=== PATIENT | male | born 1965 | race Caucasian/White ===

== ENCOUNTER 2016-07-24 12:28 | Emergency (ER) | payer OTHER ==
[2016-07-24 12:37] VITALS: TEMP 98.1; BMI 30.3
[2016-07-24] MEDS ORDERED: KETOROLAC TROMETHAMINE 30 MG/1 ML VIAL IVPUSH ONE (12:45)
--- NOTE | 2016-07-24 12:56 | PDOC ---
History of Present Illness - History of Present Illness Initial Comments: 07/24/16 12:58 The patient is a 53-year-old man, accompanied by , with a past medical history of herniated discs s/p epidural injection and rapid heart beats who presents to the emergency department for further evaluation of chest pain approximately 25 minutes prior to ER arrival. Patient states that he was in his backyard, raking the leaves, when he suddenly felt left sided shoulder pain that radiates down to his left chest. Patient states that he had this pain before, that usually resolves when taking 2 baby aspirins. Patient took to baby aspirins today with no relief. He notes that his pain is severely exacerbated when taking deep breathes (with a rated 8/10). He also notes that his pain is mildly exacerbated with lateral arm movements. He denies any associated symptoms of fever, chills, nausea, headache, shortness of breath, leg pain/ swelling, neck pain, neck stiffness, nausea, vomiting, abdominal pain, sore throat, urinary symptoms Allergies: No Known Drug Allergies Past Surgical History: Epidural injections Social History: Never smoked. Occasional ETOH use. No recreational drug use. Primary Care Physician: Dr. Scott Steele <Karie Noble - Last Filed: 07/24/16 13:00> - General History Source: Patient, Old Records Exam Limitations: No Limitations <Tiffanie Son - Last Filed: 07/24/16 15:57> - General Chief Complaint: Chest Pain Stated Complaint: CHEST PAIN Time Seen by Provider: 07/24/16 12:38 Past History <Karie Noble - Last Filed: 07/24/16 13:00> - Past Medical History Other medical history: CHRONIC BACK PAIN. - Psycho/Social/Smoking Cessation Hx Anxiety: No Suicidal Ideation: No Smoking History: Never smoked Hx Alcohol Use: Yes (occassionally.) Drug/Substance Use Hx: No Substance Use Type: Alcohol <Tiffanie Son - Last Filed: 07/24/16 15:57> - Past Medical History Allergies/Adverse Reactions: Allergies Allergy/AdvReac Type Severity Reaction Status Date / Time No Known Allergies Allergy Verified 07/24/16 12:31 Home Medications: Ambulatory Orders Aspirin [ASA -] 81 mg PO DAILY 07/24/16 Review of Systems - Review of Systems Able to Perform ROS?: Yes Comments:: 07/24/16 12:58 CONSTITUTIONAL: Absent: fever, chills, diaphoresis, generalized weakness, malaise, loss of appetite HEENT: Absent: rhinorrhea, nasal congestion, throat pain, throat swelling, difficulty swallowing, mouth swelling, ear pain, eye pain, visual Changes CARDIOVASCULAR: Present: Chest pain. Absent: syncope, palpitations, irregular heart rate, lightheadedness, peripheral edema RESPIRATORY: Absent: cough, shortness of breath, dyspnea with exertion, orthopnea, wheezing, stridor, hemoptysis GASTROINTESTINAL:Absent: abdominal pain, abdominal distension, nausea, vomiting , diarrhea, constipation, melena, hematochezia GENITOURINARY: Absent: dysuria, frequency, urgency, hesitancy, hematuria, flank pain, genital pain MUSCULOSKELETAL: Present: Left shoulder pain radiating to his chest. Absent: joint swelling SKIN: Absent: rash, itching, pallor HEMATOLOGIC/IMMUNOLOGIC: Absent: easy bleeding, easy bruising, lymphadenopathy, frequent infections ENDOCRINE:Absent: unexplained weight gain, unexplained weight loss, heat intolerance, cold intolerance NEUROLOGIC: Absent: headache, focal weakness or paresthesias, dizziness, unsteady gait, seizure, mental status changes, bladder or bowel incontinence PSYCHIATRIC: Absent: anxiety, depression, suicidal or homicidal ideation, hallucinations <Karie Noble - Last Filed: 07/24/16 13:00> *Physical Exam - Vital Signs Last Vital Signs Temp Pulse Resp BP Pulse Ox 98.1 F 72 18 127/93 96 07/24/16 12:30 07/24/16 12:30 07/24/16 12:30 07/24/16 12:30 07/24/16 12:30 - Physical Exam Comments: 07/24/16 12:59 GENERAL: Well developed, well nourished. Awake and alert. No acute distress. HEENT: Normocephalic, atraumatic. PERRLA, EOMI. No conjunctival pallor. Sclera are non-icteric. Moist mucous membranes. Oropharynx is clear. NECK: Supple. Full ROM. No JVD. CARDIOVASCULAR: Regular rate and rhythm. No murmurs, rubs, or gallops. PULMONARY: No evidence of respiratory distress. Lungs clear to auscultation bilaterally. No wheezing, rales or rhonchi. ABDOMINAL: Soft. Non-tender. Non-distended. No rebound or guarding. No organomegaly. Normoactive bowel sounds. MUSCULOSKELETAL: Normal range of motion at all joints. No bony deformities or tenderness. No CVA tenderness. EXTREMITIES: No cyanosis. No clubbing. No edema. No calf tenderness. SKIN: Warm and dry. Normal capillary refill. No rashes. No jaundice. NEUROLOGICAL: Alert, awake, appropriate. Cranial nerves 2-12 intact. Normal speech. PSYCHIATRIC: Cooperative. Good eye contact. Appropriate mood and affect. <Karie Noble - Last Filed: 07/24/16 13:00> - Vital Signs Last Vital Signs Temp Pulse Resp BP Pulse Ox 98.1 F 72 18 127/93 96 07/24/16 12:30 07/24/16 12:30 07/24/16 12:30 07/24/16 12:30 07/24/16 12:30 <Tiffanie Son - Last Filed: 07/24/16 15:57> ED Treatment Course - LABORATORY CBC & Chemistry Diagram: 07/24/16 13:13 07/24/16 13:13 - RADIOLOGY Radiology Studies Ordered: Category Date Time Status CHEST PA & LAT [RAD] Stat Radiology 07/24/16 12:45 Ordered <Tiffanie Son - Last Filed: 07/24/16 15:57> Medical Decision Making - Medical Decision Making 07/24/16 12:45 51-year-old male with history of chronic lower back pain who presents to the emergency Department with complaints of left-sided shoulder pain radiating into the chest that occurred while he was raking leaves; the pain is described as sharp and is worse with deep inspiration and movement of his left upper extremity. Differential diagnosis includes but is not limited to: ACS, musculoskeletal pain, pneumothorax, URI, electrolyte abnormality, toxic/ metabolic derangement. Plan: 1. EKGshows normal sinus rhythm at 78 bpm with a normal axis and normal intervals and no acute ST segment changes. 2. Labs 3. Chest x-ray 4. Pain management 5. Observe and reevaluate 07/24/16 15:54 Addendum: Labs were reviewed and are noted in the EMR. His heart score is low and his Sx are atypical for CP of cardiac origin. Will discharge home. Follow- up with PCP within one week. Return to the ED if Sx persist, worsen or new Sx arise. <Tiffanie Son - Last Filed: 07/24/16 15:57> *DC/Admit/Observation/Transfer - Attestations Scribe Attestion: 07/24/16 13:00 Documentation prepared by Karie Noble, acting as medical assisting instructor for Tiffanie Son MD. <Karie Noble - Last Filed: 07/24/16 13:00> - Discharge Dispostion Admit: No - Attestations Physician Attestion: 07/24/16 12:56 I, Dr. Tiffanie Son, attest that the scribes documentation that appears above has been prepared under my direction and personally reviewed by me in its entirety. I confirmed that the note above accurately reflects all work, treatment, procedures, and medical decision-making performed by me. <Tiffanie Son - Last Filed: 07/24/16 15:57> Diagnosis at time of Disposition: Chest pain - Discharge Dispostion Disposition: HOME Condition at time of disposition: Stable - Referrals Referrals: Scott Steele MD [Primary Care Provider] - - Patient Instructions Printed Discharge Instructions: DI for Atypical Chest Pain, DI for Chest Pain Additional Instructions: You have chest pain that is not typical for having a cardiac etiology. You may take tylenol or ibuprofen for your pain. Please follow-up with your primary care physician and return to the ED if your symptoms persist, worsen or new symptoms arise.
[2016-07-24] MEDS ORDERED: KETOROLAC TROMETHAMINE 30 MG/1 ML VIAL ONE (13:08)
[2016-07-24 13:23] LABS: BASOPHIL 0.7 % (0-2.0); EOSINOPHIL 1.6 % (0-4.5); MCH 29.8 pg (25.7-33.7); MCHC 34.1 g/dl (32.0-35.9); MEAN CELL VOLUME 87.7 fl (80-96); MEAN PLT VOLUME 7.6 fl (7.5-11.1); NEUTROPHILS 41.7 % (42.8-82.8); PLATELET COUNT 204 K/MM3 (134-434); RDW 13.3 % (11.9-15.9); WHITE BLOOD COUNT 4.7 K/mm3 (4.0-10.0)
[2016-07-24 13:50] LABS: MAGNESIUM 1.8 mg/dL (1.8-2.4); PHOSPHOROUS 3.1 mg/dL (2.5-4.9)
[2016-07-24 13:51] LABS: ALBUMIN 3.4 g/dl (3.4-5.0); ANION GAP 9 (8-16); BILIRUBIN,TOTAL 0.5 mg/dL (0.2-1.0); CALCIUM 8.3 mg/dL (8.5-10.1); CO2 26 mmol/L (21-32); COCKROFT - GAULT 141.67; CREATININE 0.9 mg/dL (0.7-1.3); GLUCOSE,RANDOM 87 mg/dL (74-106); SGOT/AST 12 U/L (15-37); SGPT/ALT 30 U/L (12-78); TOT PROT 6.7 g/dl (6.4-8.2)
[2016-07-24 13:54] LABS: ALK PHOS 66 U/L (45-117); TROPONIN I < 0.02 ng/ml (0.00-0.05)
[2016-07-24 16:35] VITALS: BP 126/72; PULSE 70
--- NOTE | 2016-07-24 17:11 | EKG ---
Test Reason : Blood Pressure : / mmHG Vent. Rate : 078 BPM Atrial Rate : 078 BPM P-R Int : 194 ms QRS Dur : 084 ms QT Int : 356 ms P-R-T Axes : 052 -04 046 degrees QTc Int : 405 ms NORMAL SINUS RHYTHM NORMAL ECG WHEN COMPARED WITH ECG OF 09-JUL-2014 17:47, NO SIGNIFICANT CHANGE WAS FOUND Confirmed by DONALD COBB MD ([id number]) on 07/24/2016 5:11:16 PM Referred By: Confirmed By:DONALD COBB MD
== END 2016-07-24 16:35 | disposition home or self-care (01) ==
LOC: JER 12:28
PROC: 3E0333Z Introduction of Anti-inflammatory into Peripheral Vein, Percutaneous Approach (ICD-10-PCS; principal; 2016-07-24)
DX: R07.89 Other chest pain (principal); X50.0XXA Overexertion from strenuous movement or load, initial encounter; Y93.H1 Activity, digging, shoveling and raking; Y92.017 Garden or yard in single-family (private) house as the place of occurrence of the external cause
CPT/HCPCS: 36415; 71020-TC; 80053; 82550; 83735; 84100; 84484; 85025; 93005; 93010; 99284-25